=== PATIENT | male | born 1950 | race Caucasian/White ===

== ENCOUNTER 2020-02-18 14:36 | Emergency (ER) | payer SELFPAY ==
--- NOTE | 2020-02-18 14:50 | NUR ---
NO ANSWER IN TRIAGE AREA OR TENT
== END 2020-02-18 14:50 | disposition left against medical advice (07) ==
LOC: MED 14:36
DX: R05 Cough (principal); Z53.21 Procedure and treatment not carried out due to patient leaving prior to being seen by health care provider

== ENCOUNTER 2020-02-19 11:00 | Emergency (ER) | payer OTHER ==
[~2020-02-19] VITALS: Ht 167.6 cm; Wt 74.8 kg
[2020-02-19 11:11] VITALS: BP 117/70
--- NOTE | 2020-02-19 14:03 | NUR ---
PT NAME CALLED OUT IN LOBBY, NO RESPONSE
--- NOTE | 2020-02-19 14:10 | NUR ---
PATIENT LEFT WITHOUT BEING SEEN BY DR. East. NO FURTHER CARE PROVIDED FOR PATIENT.
== END 2020-02-19 14:10 | disposition left against medical advice (07) ==
LOC: MED 11:00
DX: J02.9 Acute pharyngitis, unspecified (principal); Z53.21 Procedure and treatment not carried out due to patient leaving prior to being seen by health care provider

== ENCOUNTER 2020-02-20 07:50 | Emergency (ER) | payer OTHER, SELFPAY ==
[~2020-02-20] VITALS: Ht 167.6 cm; Wt 90.7 kg
[2020-02-20 08:02] VITALS: BP 104/56
--- NOTE | 2020-02-20 08:09 | NUR ---
Patient ambulated to bed 2. RN evaluating patient at bedside.
[2020-02-20] MEDS ORDERED: NACL 0.9% 1,000 ML IV ONE (08:10)
--- NOTE | 2020-02-20 08:35 | NUR ---
pt swabbed in bed, sample taken to lab
--- NOTE | 2020-02-20 08:41 | NUR ---
Dr. Shea is evaluating the patient at bedside.
--- NOTE | 2020-02-20 08:42 | NUR ---
69 Y/O MALE C/O CHILLS, WEAKNESS AND LETHARGY GOING ON FOR 2 WEEKS ON/OFF. DENIES ANY SOB/PAIN/CP./FEVERS. DENIES N/V/D. RESP EVEN AND UNLABORED. DIMINISHED LUNG SOUNDS IN BILAT BASES. PT STATES HE HAS AN ONGOING PRODUCTIVE COUGH. AAOX4. SKIN COOL/DRY. SPO2 94% RA. ABLE TO AMBULATE TO BED DENIES PMH NKA
--- NOTE | 2020-02-20 08:42 | NUR ---
surgery technician at bedside.
[2020-02-20 10:02] VITALS: BP 104/56
--- NOTE | 2020-02-20 10:03 | NUR ---
Patient discharged with v/s stable. Written and verbal after care instructions given and explained. Patient alert, oriented and verbalized understanding of instructions. Ambulatory with steady gait. All questions addressed prior to discharge. ID band removed. Patient advised to follow up with PMD. Opportunity to ask questions provided and answered.
== END 2020-02-20 10:03 | disposition home or self-care (01) ==
LOC: MED 07:50 → EEVIPCON 07:50 → MED 10:03
DX: R50.9 Fever, unspecified (principal); Z20.828 Contact with and (suspected) exposure to other viral communicable diseases
CPT/HCPCS: 71045; 99284; J7030; Q0092; U0003

== ENCOUNTER 2020-03-07 10:31 | Emergency (ER) | payer OTHER, SELFPAY ==
[~2020-03-07] VITALS: Ht 167.6 cm; Wt 68.0 kg
[2020-03-07 10:49] VITALS: BP 112/65
--- NOTE | 2020-03-07 11:01 | NUR ---
PT AMBULATED TO BED 4, STEADY GAIT
--- NOTE | 2020-03-07 11:08 | NUR ---
PT PLACED ON 3 LEAD ECG AND PULSE OX.
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
--- NOTE | 2020-03-07 11:20 | NUR ---
RT AT BEDSIDE FOR ABG.
--- NOTE | 2020-03-07 11:36 | NUR ---
LAB AT BEDSIDE.
--- NOTE | 2020-03-07 11:44 | NUR ---
Dr. Walters is evaluating the patient at bedside.
--- NOTE | 2020-03-07 11:53 | NUR ---
XR AT BEDSIDE.
--- NOTE | 2020-03-07 12:01 | NUR ---
Dr. Walters is re-evaluating the patient at bedside.
--- NOTE | 2020-03-07 12:21 | NUR ---
PT SATTING AT 97 ON RA. PLACED ON 2L NC PER ERMD FOR COMFORT.
[2020-03-07] MEDS ORDERED: NACL 0.9% 1,000 ML IV SCH (12:27)
[2020-03-07] MEDS ORDERED: ALBUTEROL HFA MDI 90 MCG/ACTUATION 8 GM INH PRN (12:30)
[2020-03-07] MEDS ORDERED: ACETAMINOPHEN 325 MG TAB PO PRN (12:30)
[2020-03-07] MEDS ORDERED: ONDANSETRON 4 MG/2 ML VIAL IVP PRN (12:30)
[2020-03-07 12:38] LABS: RSV NEGATIVE (NEGATIVE)
[2020-03-07 12:53] LABS: ALBUMIN 1.5 g/dL (3.4-5.0); ANION GAP 9.6 (8-16); CARBON DIOXIDE 23.9 mmol/L (21-32); CREATININE 1.1 mg/dL (0.6-1.3); POTASSIUM 3.5 mmol/L (3.5-5.1); TOTAL BILIRUBIN 1.3 mg/dL (0.0-1.0)
--- NOTE | 2020-03-07 12:57 | NUR ---
PT UNABLE TO PROVIDE URINE AT THIS TIME.
[2020-03-07 13:09] LABS: PROTHROMBIN TIME 14.3 secs (10.8-13.4)
[2020-03-07 13:12] LABS: HEMATOCRIT 35.7 % (36-52); HEMOGLOBIN 12.3 g/dL (12.0-18.0); MEAN CORPUSCULAR HEMOGLOBIN 45 pg (27-31); MEAN CORPUSCULAR HGB CONC 34 g/dL (33-37); MEAN CORPUSCULAR VOLUME 130.7 fL (80-94); PLATELET COUNT (AUTO) 58 K/uL (140-450); RED BLOOD CELL COUNT(AUTO) 2.73 MIL/uL (4.20-6.10); RED CELL DISTRIBUTION WIDTH 17.1 % (11.6-13.7); WHITE BLOOD COUNT (AUTO) 3.9 K/uL (4.8-10.8)
[2020-03-07 13:17] LABS: FREE T4 (FREE THYROXINE) 0.78 ng/dL (0.76-1.46); MAGNESIUM 1.8 mg/dL (1.8-2.4); THYROID STIMULATING HORMONE 25.88 uIU/mL (0.34-3.74)
[2020-03-07 13:17] LABS: EOSINOPHILS % (MANUAL) 3 % (0-4); LYMPHOCYTES % (MANUAL) 23 % (20-46); MONOCYTES % (MANUAL) 7 % (5-12)
[2020-03-07 13:19] LABS: LACTATE DEHYDROGENASE 252 U/L (85-227)
[2020-03-07 13:28] LABS: C-REACTIVE PROTEIN QUANT 4.8 mg/dL (0.0-0.9)
[2020-03-07 13:34] LABS: PHOSPHORUS 1.1 mg/dL (2.5-4.9)
[2020-03-07 13:45] VITALS: BP 113/62
--- NOTE | 2020-03-07 14:10 | NUR ---
Dr. Deng is evaluating the patient at bedside.
--- NOTE | 2020-03-07 14:16 | NUR ---
Pt refusing iv hydration and refusing to stay, dr. lemus made aware.
--- NOTE | 2020-03-07 14:32 | NUR ---
Patient does not wish to proceed with medical care recommended by dr. luna. Patient given information related to possible complications, up to and including , which could occur as a result of leaving hospital at this time. Patient verbalizes understanding of risks involved leaving against medical advice. Patient has signed AMA form.
[2020-03-07] MEDS ORDERED: DOCUSATE SODIUM 100 MG GELCAP PO SCH (21:00)
[2020-03-11] MEDS ORDERED: AZIT250T11 PO (12:28)
[2020-03-11] MEDS ORDERED: LEVO0.0211 PO (12:28)
[2020-03-11] MEDS ORDERED: DEC4 PO (12:28)
[2020-03-11] MEDS ORDERED: APIX5TAB4 PO (12:35)
== END 2020-03-07 14:32 | disposition left against medical advice (07) ==
LOC: MED 10:31 → EEVIPCON 10:31 → UNDOADMIN 12:27 → MTU 12:27 → MED 14:32
DX: U07.1 COVID-19 (principal); J12.89 Other viral pneumonia; A41.89 Other specified sepsis; E87.3 Alkalosis; D69.6 Thrombocytopenia, unspecified; E46 Unspecified protein-calorie malnutrition; D72.819 Decreased white blood cell count, unspecified; E80.6 Other disorders of bilirubin metabolism; R65.20 Severe sepsis without septic shock; R73.9 Hyperglycemia, unspecified; R06.89 Other abnormalities of breathing
CPT/HCPCS: 36415; 36600; 71045; 80053; 82150; 82550; 82728; 82803; 83036; 83605; 83615; 83690; 83735; 83880; 84100; 84439; 84443; 84484; 85025; 85379; 85384; 85610; 85730; 86140; 86710; 87040; 87420; 87804; 93005; 99291; Q0092